=== PATIENT | female | born 1995 | race African-American/Black ===

== ENCOUNTER 2017-11-17 16:45 | Emergency (ER) | payer OTHER ==
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
[2017-11-17 17:17] VITALS: BP 134/80; PULSE 116; TEMP 99.4; BMI 30.8
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
== END 2017-11-17 18:15 | disposition home or self-care (01) ==
LOC: JERFT 16:45
DX: S49.82XA Other specified injuries of left shoulder and upper arm, initial encounter (principal); V43.52XA Car driver injured in collision with other type car in traffic accident, initial encounter; W22.11XA Striking against or struck by driver side automobile airbag, initial encounter; Y92.488 Other paved roadways as the place of occurrence of the external cause; Y93.89 Activity, other specified; Y99.8 Other external cause status
CPT/HCPCS: 99281-25